=== PATIENT | female | born 1930 | race Caucasian/White ===

== ENCOUNTER → 2016-10-30 | Outpatient (CLI) | payer MEDICARE, BC ==
[~2016-10-30] MED LIST: ALTA1.256 PO; ASPI81TA82 PO; CALTTAB5 PO; FLUTI220I INH; LEVO100T4 PO; METR-1 PO; NEXI40CA PO; PRAV40TA PO; [UNRECOGNIZED DRUG - OTHER] PO
--- NOTE | 2016-11-04 08:44 | RSPPFT ---
DATE OF PROCEDURE: 10/30/16 COMMENTS: VOLUMES DYNAMIC: FVC and FEV1 normal. STATIC: TLC and VTG normal; RV mildly increased. FLOWS: FEV1% mildly reduced; FEF 25-75 moderately reduced. DIFFUSION: Normal. FLOW VOLUME LOOP: Terminal airflow obstruction. IMPRESSION: Very mild obstructive ventilatory defect with mild hyperinflation but with normal airways resistance and no reduction in diffusion. There is no significant improvement post-bronchodilator.
== END ==
LOC: HRSP 09:09
PROVIDERS: ATTEND Internal Medicine
DX: J45.909 Unspecified asthma, uncomplicated (principal)
CPT/HCPCS: 94060; 94620; 94726; 94729